=== PATIENT | male | born 1965 | race Caucasian/White ===

== ENCOUNTER 2021-02-04 08:30 | Day surgery (SDC) | payer OTHER, SELFPAY ==
[~2021-02-04] VITALS: Ht 154.9 cm; Wt 93.0 kg
[2021-02-04] MEDS ORDERED: MEPERIDINE 100 MG INJ. 100 MG/ML VIAL ONE (09:08)
[2021-02-04] MEDS ORDERED: MIDAZOLAM HCL 5 MG/5 ML VIAL ONE (09:08)
[2021-02-04 13:51] VITALS: BP_SYST 112
== END 2021-02-04 10:45 | disposition home or self-care (01) ==
LOC: SDS 08:30 → SMU 08:31 → SDS 10:45
PROVIDERS: ATTEND Internal Medicine Gastroenterology
DX: R19.5 Other fecal abnormalities (principal); K57.30 Diverticulosis of large intestine without perforation or abscess without bleeding; K64.8 Other hemorrhoids; R19.7 Diarrhea, unspecified; E11.9 Type 2 diabetes mellitus without complications; R79.89 Other specified abnormal findings of blood chemistry; E78.00 Pure hypercholesterolemia, unspecified; I10 Essential (primary) hypertension; Z79.84 Long term (current) use of oral hypoglycemic drugs; Z79.899 Other long term (current) drug therapy; Z20.822 Contact with and (suspected) exposure to COVID-19
CPT/HCPCS: 45380; 82962; 88305; 99152; G0378; J2175; J2250; U0003